=== PATIENT | male | born 1980 | race African-American/Black ===

== ENCOUNTER 2021-08-29 23:38 | Emergency (ER) | payer OTHER, MEDICAID ==
[~2021-08-29] VITALS: Ht 170.2 cm; Wt 61.2 kg
[~2021-08-29 23:38] MED LIST: COGENTIN; ZYPREXA
--- NOTE | 2021-08-30 00:16 | NUR ---
[facility]
--- NOTE | 2021-08-30 00:20 | NUR ---
Dr. Dunne examining patient.
--- NOTE | 2021-08-30 00:30 | NUR ---
PATIENT BIB [employer]. PATIENT EXAMINED BY DR. AMANDA. PATIENT MEDICALLY CLEARED AND RELEASED IN CUSTODY IN STABLE CONDITION. ORIGINAL PRE-BOOK FORM GIVEN TO OFFICER AGA Tena
[2021-08-31] MEDS ORDERED: AMOX-1000 PO (12:08)
== END 2021-08-30 00:30 ==
LOC: MED 23:38
DX: S61.207A Unspecified open wound of left little finger without damage to nail, initial encounter (principal); S61.201A Unspecified open wound of left index finger without damage to nail, initial encounter; X58.XXXA Exposure to other specified factors, initial encounter; Y93.89 Activity, other specified; Y92.89 Other specified places as the place of occurrence of the external cause; Y99.8 Other external cause status
CPT/HCPCS: 99283

== ENCOUNTER 2021-08-30 02:30 | Inpatient (IN) | payer OTHER, MEDICAID, SELFPAY ==
[~2021-08-30] VITALS: Ht 170.2 cm; Wt 61.2 kg
[2021-08-30 02:49] VITALS: BP 168/87
--- NOTE | 2021-08-30 02:49 | NUR ---
Dr. Dunne examining patient.
[2021-08-30] MEDS ORDERED: LORazepam 2 MG/ML VIAL IVP ONE (03:10)
[2021-08-30] MEDS ORDERED: KETOROLAC 30 MG/ML VIAL IVP ONE (03:10)
[2021-08-30] MEDS ORDERED: VANCOMYCIN 1,000 MG in DEXTROSE 5% 250 ML IV ONE (03:10)
[2021-08-30] MEDS ORDERED: diphenhydrAMINE 50 MG/ML VIAL IVP ONE (03:10)
[2021-08-30 03:46] LABS: BASOPHILS % (AUTO) 0.3 % (0.0-2.0); EOSINOPHILS # (AUTO) 0.7 K/uL (0-0.4); EOSINOPHILS % (AUTO) 6.4 % (0.0-4.0); HEMOGLOBIN 12.3 g/dL (12.0-18.0); LYMPHOCYTES # (AUTO) 1.8 K/uL (2.0-11.5); LYMPHOCYTES % (AUTO) 17.8 % (20.5-51.1); MEAN CORPUSCULAR HEMOGLOBIN 33 pg (27-31); MEAN CORPUSCULAR HGB CONC 34 g/dL (33-37); MEAN CORPUSCULAR VOLUME 95.7 fL (80-94); MONOCYTES # (AUTO) 0.4 K/uL (0.8-1.0); MONOCYTES % (AUTO) 3.7 % (1.7-9.3); NEUTROPHILS # (AUTO) 7.3 K/uL (1.8-7.7); NEUTROPHILS % (AUTO) 71.8 % (42.2-75.2); PLATELET COUNT (AUTO) 438 K/uL (140-450); RED BLOOD CELL COUNT(AUTO) 3.76 MIL/uL (4.20-6.10); WHITE BLOOD COUNT (AUTO) 10.1 K/uL (4.8-10.8)
--- NOTE | 2021-08-30 04:00 | NUR ---
pt brought back in by eleazar rust. pt came in earlier for a prebook and coutny denied him due to swollen and eroded fingers secondary to rings. pt was assessed by Dr. chicas.DR. BUSH unsuccessful at removal attempt. pt was combative during the first visit and not allowed in.
--- NOTE | 2021-08-30 04:30 | NUR ---
SWAB FOR SOHAM , SENT TO LAB
--- NOTE | 2021-08-30 04:40 | NUR ---
Jony suarez in [facility] - 08/30/21 at 0440 by AASHISH POT MOVED TO ER BED 2
--- NOTE | 2021-08-30 04:40 | NUR ---
PT MOVED TO ER BED 2
[2021-08-30 04:58] LABS: ALBUMIN 3.4 g/dL (3.4-5.0); ANION GAP 14.7 (8-16); CARBON DIOXIDE 26.3 mmol/L (21-32); CREATININE 0.8 mg/dL (0.6-1.3); TOTAL BILIRUBIN 0.1 mg/dL (0.0-1.0)
[2021-08-30] MEDS ORDERED: VANCOMYCIN 1,000 MG VIAL ONE ×3 (05:14→22:07)
[2021-08-30] MEDS ORDERED: diphenhydrAMINE 50 MG/ML VIAL ONE (05:15)
[2021-08-30] MEDS ORDERED: LORazepam 2 MG/ML VIAL ONE (05:15)
[2021-08-30] MEDS ORDERED: KETOROLAC 30 MG/ML VIAL ONE (05:16)
--- NOTE | 2021-08-30 06:45 | NUR ---
pt ripped iv out. wandering. aloc. a&o x4
--- NOTE | 2021-08-30 07:40 | NUR ---
Received pt from night nurse. Pt is sleeping at moment and easily arousable, able to follow simple commands. Pt denies pain. Pt went back to sleep right away.
--- NOTE | 2021-08-30 07:45 | NUR ---
Received report from night nurse that they couldn't find a ring cutter. Pt has multiple rings on both fingers and R 5th finger and L 2nd finger are swelling with redness. unable to remove the rings.
[2021-08-30] MEDS ORDERED: DOCUSATE SODIUM 100 MG GELCAP PO PRN (09:10)
[2021-08-30] MEDS ORDERED: MAGNESIUM OXIDE 400 MG TAB PO PRN (09:10)
[2021-08-30] MEDS ORDERED: ACETAMINOPHEN 325 MG TAB PO PRN (09:10)
[2021-08-30] MEDS ORDERED: HYDROcodone/APAP 5/325 MG 1 TAB TAB PO PRN (09:10)
[2021-08-30] MEDS ORDERED: ONDANSETRON 4 MG/2 ML VIAL IM/IVP PRN (09:10)
[2021-08-30] MEDS ORDERED: SODIUM PHOS / POTASSIUM PHOS 1 PKT PDR PO PRN (09:10)
[2021-08-30] MEDS ORDERED: POTASSIUM CHLORIDE 10 MEQ TABER PO PRN (09:10)
[2021-08-30] MEDS ORDERED: MORPHINE SULFATE 2 MG/ML SYR IVP PRN (09:10)
[2021-08-30 10:25] LABS: MAGNESIUM 2.2 mg/dL (1.8-2.4); PHOSPHORUS 3.4 mg/dL (2.5-4.9)
[2021-08-30] MEDS: NACL 0.9% 1,000 ML IV SCH (10:30)
--- NOTE | 2021-08-30 11:30 | NUR ---
PA is at bedisde and cut the ring on R 5th finger. unable to cut the ring on L 2nd finger.
--- NOTE | 2021-08-30 11:50 | NUR ---
pt ambulated to bathroom
[2021-08-30] MEDS ORDERED: cefTRIAXone 1,000 MG VIAL ONE (12:02)
--- NOTE | 2021-08-30 12:28 | NUR ---
HANDS CLEANED WITH WARM WATER BEDSIDE.
[2021-08-30] MEDS ORDERED: VANCOMYCIN PER PHARMACY MC PRN (13:45)
--- NOTE | 2021-08-30 14:22 | NUR ---
Patient noted to have existing wounds upon arrival to ER. Physician informed.
[2021-08-30] MEDS: VANCOMYCIN 1,000 MG in DEXTROSE 5% 250 ML IV SCH ×2 (14:30→22:27)
--- NOTE | 2021-08-30 15:31 | NUR ---
Pt covers himself under the blanket and continues to sleep, no distress. Denies pain.
--- NOTE | 2021-08-30 16:37 | NUR ---
PATIENT HAS BEEN SCREENED AND CATEGORIZED LOW NUTRITION RISK. PATIENT WILL BE SEEN WITHIN 7 DAYS OF ADMISSION. 09/05/[address]
--- NOTE | 2021-08-30 17:57 | NUR ---
Dr. Juventino Hutchison called and notifed that he is coming in 20 mins to work on the ring. Requested to have supply at [facility].
[2021-08-30] MEDS ORDERED: LIDOCAINE MPF 1% 10 MG/ML VIAL INJ SCH ×2 (18:00→18:10)
[2021-08-30] MEDS ORDERED: LIDOCAINE MPF 1% 10 ML ONE (18:04)
--- NOTE | 2021-08-30 18:56 | NUR ---
Dr. Jauregui is at [facility].
--- NOTE | 2021-08-30 19:07 | NUR ---
Dr. Jauregui was able to remove ring on R 5th finger with minimu bleed. Pt requested to keep the broken ring. returned to patient in urice specimen container.
--- NOTE | 2021-08-30 19:28 | NUR ---
Report received from NICO Manrique for continuity of pt care at this time.
--- NOTE | 2021-08-30 19:37 | NUR ---
PT LAYING IN BED LOCKED IN LOWEST POSITION W X2 SIDERAILS UP FOR PT SAFETY. HOB ELEVATED, BED LOCKED INLOWEST POSITON. PT REPORTS MILD PAIN TO AFFECTED FINGERS BUT REPORTS FEELING BETTER THAN BEFORE. BOTH FINGERS SWOLLEN FINGER TO L HAND GAUZED AND BANDAGED, NO BLEEDING NOTED. PT DENIES ANY FEVERS, CHILLS, N/V/D. PT HAS 18 G TO R FOREARM AND L AC. PT REQUESTING FOOD. PT ALSO REQUESTING TO KEEP ONE OF THE RINGS THAT WAS CUT OFF, WILL FOLLOW UP W HOUSE SUP FOR RING LOCATION. PT BLOOD PRESSURE 145/104 BUT OTHERWISE VSS. BREATHING EVEN AND UNLABORED. NAD NOTED, WILL CONTINUE TO MONITOR.
--- NOTE | 2021-08-30 20:02 | NUR ---
WELDER APPRENTICE [employer] CONTACTED GRACE GILLESPIE, WELDER APPRENTICE ARC WILL FOLLOW UP W DAY SHIFT.
--- NOTE | 2021-08-30 20:38 | NUR ---
PER NICO PETERS, RING WAS DISINTEGRATED UPON REMOVAL FROM PT FINGER. PT MADE AWARE, OK PER PT.
--- NOTE | 2021-08-30 23:29 | NUR ---
PTAPPEARS TO BE RESTING W EYES CLOSED IN R LATERAL POSITION, BLANKET ON. VSS. BREATHING EVEN AND UNLABORED. NAD NOTED, WILL CONTINUE TO MONITOR.
--- NOTE | 2021-08-31 03:08 | NUR ---
Pt report given to VIKTOR ROSALES. Transfer of care at this time.
--- NOTE | 2021-08-31 03:58 | NUR ---
Patient appears to be sleeping bed. Vital Signs within normal limits. Respirations even and unlabored.
[2021-08-31 05:29] LABS: BASOPHILS % (AUTO) 0.3 % (0.0-2.0); EOSINOPHILS # (AUTO) 0.7 K/uL (0-0.4); EOSINOPHILS % (AUTO) 9.3 % (0.0-4.0); HEMATOCRIT 36.4 % (36-52); HEMOGLOBIN 12.6 g/dL (12.0-18.0); LYMPHOCYTES # (AUTO) 1.1 K/uL (2.0-11.5); LYMPHOCYTES % (AUTO) 15.8 % (20.5-51.1); MEAN CORPUSCULAR HEMOGLOBIN 33 pg (27-31); MEAN CORPUSCULAR HGB CONC 35 g/dL (33-37); MEAN CORPUSCULAR VOLUME 96.1 fL (80-94); MONOCYTES # (AUTO) 0.5 K/uL (0.8-1.0); MONOCYTES % (AUTO) 6.4 % (1.7-9.3); NEUTROPHILS # (AUTO) 4.9 K/uL (1.8-7.7); NEUTROPHILS % (AUTO) 68.2 % (42.2-75.2); PLATELET COUNT (AUTO) 405 K/uL (140-450); RED BLOOD CELL COUNT(AUTO) 3.79 MIL/uL (4.20-6.10); RED CELL DISTRIBUTION WIDTH 12.9 % (11.6-13.7); WHITE BLOOD COUNT (AUTO) 7.3 K/uL (4.8-10.8)
--- NOTE | 2021-08-31 05:32 | NUR ---
pt provided sandwhich. emptied uniral, 400 mls
[2021-08-31] MEDS ORDERED: VANCOMYCIN 1,000 MG VIAL ONE (06:08)
[2021-08-31 06:27] LABS: ANION GAP 13.2 (8-16); CARBON DIOXIDE 24.6 mmol/L (21-32); CREATININE 0.8 mg/dL (0.6-1.3); POTASSIUM 3.8 mmol/L (3.5-5.1)
[2021-08-31] MEDS: VANCOMYCIN 1,000 MG in DEXTROSE 5% 250 ML IV SCH (06:55)
--- NOTE | 2021-08-31 08:06 | NUR ---
Pt is AOX4, able to make all needs known. Denies N/V/D/CP at this time. Resp even and unlabored on RA. Lungs sounds clear upon auscultation. VSS. Pt able to reposition self. SR up for safety. Index finger on left hand appears swollen and red. Denies pain at this time. Call light in reach.
[2021-08-31] MEDS ORDERED: PANTOPRAZOLE 40 MG TABEC PO SCH (09:00)
[2021-08-31] MEDS: NACL 0.9% 1,000 ML IV SCH (09:10)
--- NOTE | 2021-08-31 09:30 | NUR ---
WOUND CARE NOTE: SEEN PT. IN ER ROOM 2, PT. IS AAX4 ,GOOD ROM TO FINGERS X10, DENY PAIN. S/P RINGS REMOVAL TO LEFT INDEX FINGER AND RIGHT 5TH DIGIT FINGER. SUPERFICIAL EROSIONS NO ODOR, NO DRAINAGE, PERIWOUND SKIN INTACT, SWELLING. WOUND CARE PROVIDES WITH WOUND CARE INSTRUCTIONS EXPLAINED PER DR. QUINN'S NOTE. PT. VERBALIZES UNDERSTANDING. PT. EXPRESS LIKE TO LEAVE THE HOSPITAL, EXPLAIN TO PT. TO SPEAK TO DOCTOR. I ALSO SPEAK TO ER DOCTOR,DOCTOR MAHAN ABOUT PT'S WISH TO LEAVE.PER SHE WILL TALK TO PT.
[2021-08-31] MEDS ORDERED: cefTRIAXone 1,000 MG VIAL ONE (10:45)
[2021-08-31] MEDS ORDERED: AMOX-1000 PO (12:08)
--- NOTE | 2021-08-31 12:35 | NUR ---
Patient appears to be resting comfortably in bed. Vital Signs within normal limits. Respirations even and unlabored. Denies pain at this time.
[2021-08-31] MEDS ORDERED: GAUZE TP SCH (13:00)
--- NOTE | 2021-08-31 15:00 | NUR ---
CALLED AND SPOKE WITH NICOLE #[phone] AT [facility]. PT WAS CITED AND IS OKAY TO DISCHARGED.
[2021-08-31 15:42] VITALS: BP 124/78
--- NOTE | 2021-08-31 15:50 | NUR ---
PT DISCHARGED INPATIENT M/S HOLD BY DR DENTON. IV REMOVED. PT GIVEN DISCHARGE INSTRUCTIONS ALONG WITH HOMELESS PACKET, BAG OF FOOD, BUS PASSES AND CLOTHES. PT SIGNED HOMELESS WAIVER. VSS.
--- NOTE | 2021-08-31 17:49 | NUR ---
DC PLANNING LATE ENTRY SW ATTEMPTED TO MEET WITH PATIENT TO GATHER PATIENT'S COLLATERAL INFORMATION AND PROVIDE HIM WITH RESOURCES FOR HOMELESS WELL TO SCHEDULED A FOLLOW UP APPOINTMENT FOR PATIENT. PATIENT WAS NOT COOPERATIVE AND DECLINED INFORMATION PROVIDED BY THESE FACTORY MACHINE COMPUTER OPERATOR. STATED " I GOT A PLACE TO STAY THANKS AND I DO NOT NEED AN APPOINTMENT IF I NEED ANYTHING I COME TO THE HOSPITAL" PATIENT DISMISS ALBERT AND ENDED THE MEETING.
[2021-08-31] MEDS ORDERED: VANCOMYCIN 1,000 MG in DEXTROSE 5% 250 ML IV SCH (21:00)
== END 2021-08-31 15:50 | disposition home or self-care (01) | DRG 513 ==
LOC: MED 02:30 → MMU 04:42
PROVIDERS: ADMIT Hospitalist; ATTEND Hospitalist
PROC: 0LC Tendons, Extirpation (ICD-10-PCS; principal; 2021-08-31)
DX: M85.841 Other specified disorders of bone density and structure, right hand (principal); U07.1 COVID-19; I96 Gangrene, not elsewhere classified; L03.113 Cellulitis of right upper limb; L03.114 Cellulitis of left upper limb; F25.9 Schizoaffective disorder, unspecified; L08.9 Local infection of the skin and subcutaneous tissue, unspecified; M85.842 Other specified disorders of bone density and structure, left hand
CPT/HCPCS: 36415; 73130; 80048; 80053; 80202; 83735; 84100; 85025; 90471; 90715; 96365; 96367; 96375; 99285; J0696; J1200; J1885; J2001; J2060; J3370; J7060